=== PATIENT | male | born 1990 | race Caucasian/White ===

== ENCOUNTER → 2018-03-31 | Outpatient (REF) | LOC: ZLAB.WCH 18:20 | DX: Z01.89 Encounter for other specified special examinations (principal) ==

== ENCOUNTER → 2018-04-17 | Outpatient (CLI) | payer SELFPAY | LOC: COL.RAD 14:32 | DX: M50.222 Other cervical disc displacement at C5-C6 level (principal); M48.02 Spinal stenosis, cervical region; M25.78 Osteophyte, vertebrae ==